=== PATIENT | female | born 1990 | race Caucasian/White ===

== ENCOUNTER 2016-08-04 21:47 | Emergency (ER) | payer OTHER ==
[~2016-08-04] VITALS: Ht 154.9 cm; Wt 83.0 kg
[2016-08-04 22:41] LABS: UA SPECIFIC GRAVITY 1.025 (1.005-1.035); microscopic required? YES; urine erythrocyte 2+ (NEGATIVE)
[2016-08-04 22:41] LABS: BASOPHIL % 0.5 % (0-2); PLATELET COUNT 363 x10^3mcL (130-400); RED CELL DISTRIBUTION WIDTH 13.8 % (11.5-14.5)
[2016-08-04 22:50] LABS: CALCIUM 8.9 mg/dL (8.5-10.1); CARBON DIOXIDE 27.4 mmol/L (21-32); CHLORIDE SERUM 104 mmol/L (98-107); CREATININE SERUM 0.7 mg/dL (0.6-1.0); GFR1 > 60 mL/min; GLUCOSE SERUM 112 mg/dL (74-106); POTASSIUM SERUM 3.3 mmol/L (3.5-5.1); SODIUM SERUM 140 mmol/L (136-145)
[2016-08-04 22:55] LABS: ALBUMIN 4.1 g/dL (3.4-5.0); ALKALINE PHOSPHATASE 79 U/L (46-116); ALT/SGPT 43 U/L (14-59); AMYLASE 77 U/L (25-115); AST/SGOT 22 U/L (15-37); BILIRUBIN TOTAL 0.17 mg/dL (0.20-1.00); LIPASE 121 IU/L (73-393); TOTAL PROTEIN, SERUM 7.9 g/dL (6.4-8.2)
[2016-08-05 00:09] VITALS: BP 128/75
== END 2016-08-05 02:09 | disposition home or self-care (01) ==
LOC: ED 21:47
PROVIDERS: Emergency Medicine
DX: N39.0 Urinary tract infection, site not specified (principal)
CPT/HCPCS: 36415; Q0092

== ENCOUNTER 2017-03-13 18:25 | Emergency (ER) | payer MEDICAID ==
[~2017-03-13] VITALS: Ht 154.9 cm; Wt 84.8 kg
[2017-03-13 19:07] VITALS: Ht 154.9 cm; Wt 84.8 kg
[2017-03-13 20:43] VITALS: BP 119/79
== END 2017-03-13 20:43 | disposition home or self-care (01) ==
LOC: ED 18:25
DX: R51 Headache (principal); H60.91 Unspecified otitis externa, right ear
CPT/HCPCS: Q0162

== ENCOUNTER 2017-03-17 15:04 | Emergency (ER) | payer MEDICAID ==
[~2017-03-17] VITALS: Ht 154.9 cm; Wt 83.5 kg
[2017-03-17 15:32] VITALS: Ht 154.9 cm; Wt 83.5 kg
[2017-03-17 16:46] VITALS: BP 115/90
== END 2017-03-17 16:46 | disposition home or self-care (01) ==
LOC: ED 15:04
DX: J20.9 Acute bronchitis, unspecified (principal)
CPT/HCPCS: Q0092

== ENCOUNTER 2017-07-16 16:07 | Emergency (ER) | payer OTHER ==
[~2017-07-16] VITALS: Ht 154.9 cm; Wt 83.0 kg
[2017-07-16 16:09] VITALS: BP 123/81; Ht 154.9 cm; Wt 83.0 kg
== END 2017-07-16 17:22 | disposition home or self-care (01) ==
LOC: ED 16:07
DX: H66.005 Acute suppurative otitis media without spontaneous rupture of ear drum, recurrent, left ear (principal)
CPT/HCPCS: 82962

== ENCOUNTER 2017-08-24 15:50 | Emergency (ER) | payer OTHER ==
[~2017-08-24] VITALS: Ht 154.9 cm; Wt 85.3 kg
[2017-08-24 15:56] VITALS: Ht 154.9 cm; Wt 85.3 kg
[2017-08-24 17:36] VITALS: BP 116/69
== END 2017-08-24 17:37 | disposition home or self-care (01) ==
LOC: ED 15:50
DX: F41.9 Anxiety disorder, unspecified (principal); F32.9 Major depressive disorder, single episode, unspecified; R51 Headache
CPT/HCPCS: J1885

== ENCOUNTER 2017-09-18 20:01 | Emergency (ER) | payer OTHER ==
[~2017-09-18] VITALS: Ht 154.9 cm; Wt 88.9 kg
[2017-09-18 20:02] VITALS: Ht 154.9 cm; Wt 88.9 kg
[2017-09-19 00:09] VITALS: BP 122/71
== END 2017-09-19 00:10 | disposition home or self-care (01) ==
LOC: ED 20:01
DX: G44.209 Tension-type headache, unspecified, not intractable (principal); R11.2 Nausea with vomiting, unspecified
CPT/HCPCS: J0780; J1885

== ENCOUNTER 2017-10-16 08:55 | Emergency (ER) | payer OTHER ==
[~2017-10-16] VITALS: Ht 154.9 cm; Wt 88.7 kg
[2017-10-16 09:07] VITALS: Ht 154.9 cm; Wt 88.7 kg
[2017-10-16 11:10] VITALS: BP 130/94
== END 2017-10-16 11:10 | disposition home or self-care (01) ==
LOC: ED 08:55
DX: S91.202A Unspecified open wound of left great toe with damage to nail, initial encounter (principal); X58.XXXA Exposure to other specified factors, initial encounter; Y93.89 Activity, other specified; Y92.89 Other specified places as the place of occurrence of the external cause; Y99.8 Other external cause status

== ENCOUNTER 2018-09-14 21:12 | Emergency (ER) | payer OTHER ==
[~2018-09-14] VITALS: Ht 154.9 cm; Wt 86.2 kg
[2018-09-14 21:47] VITALS: Ht 154.9 cm; Wt 86.2 kg
[2018-09-15 01:28] VITALS: BP 125/76
== END 2018-09-15 01:28 | disposition home or self-care (01) ==
LOC: ED 21:12
DX: F41.9 Anxiety disorder, unspecified (principal); F32.9 Major depressive disorder, single episode, unspecified

== ENCOUNTER 2019-03-22 03:19 | Inpatient (IN) | payer OTHER ==
[~2019-03-22] VITALS: Ht 154.9 cm; Wt 85.4 kg
[2019-03-22 04:18] LABS: CHLORIDE SERUM 105 mmol/L (98-107); CREATININE SERUM 0.6 mg/dL (0.6-1.0); GFR1 > 60 mL/min; GLUCOSE SERUM 145 mg/dL (74-106); POTASSIUM SERUM 3.9 mmol/L (3.5-5.1); SODIUM SERUM 139 mmol/L (136-145)
[2019-03-22 04:23] LABS: ALKALINE PHOSPHATASE 80 U/L (46-116); ALT/SGPT 62 U/L (14-59); AST/SGOT 32 U/L (15-37); BILIRUBIN TOTAL 0.4 mg/dL (0.20-1.00); LIPASE 91 IU/L (73-393); TOTAL PROTEIN, SERUM 7.9 g/dL (6.4-8.2)
[2019-03-22 04:51] LABS: BASOPHIL % 0.1 % (0-2); PLATELET COUNT 359 x10^3mcL (130-400); RED CELL DISTRIBUTION WIDTH 14.1 % (11.5-14.5)
[2019-03-22 08:18] LABS: T3 TOTAL 1.16 ng/mL
[2019-03-22 08:39] LABS: MAGNESIUM 1.9 mg/dL (1.8-2.4); PHOSPHOROUS 3.2 mg/dL (2.5-4.9)
[2019-03-22 08:40] LABS: CHOLESTEROL/HDL RATIO 3.6
[2019-03-22 09:12] VITALS: BP 123/72
[2019-03-22 09:18] LABS: FREE THYROXINE INDEX 2.4 ug/dL (1.4-4.5); T4(THYROXINE) 7.6 ug/dL (4.7-13.3)
[2019-03-22 10:23] LABS: UA SPECIFIC GRAVITY 1.015 (1.005-1.035); microscopic required? YES; urine erythrocyte TRACE (NEGATIVE)
[2019-03-22 11:53] VITALS: BP 123/84
[2019-03-22 17:35] VITALS: BP 114/70
[2019-03-22 20:45] VITALS: BP 114/71
[2019-03-23 05:43] VITALS: BP 122/78
[2019-03-23 06:58] LABS: CALCIUM 8.3 mg/dL (8.5-10.1); CARBON DIOXIDE 23.7 mmol/L (21-32); CHLORIDE SERUM 104 mmol/L (98-107); CREATININE SERUM 0.7 mg/dL (0.6-1.0); GFR1 > 60 mL/min; GLUCOSE SERUM 153 mg/dL (74-106); POTASSIUM SERUM 3.8 mmol/L (3.5-5.1); SODIUM SERUM 138 mmol/L (136-145)
[2019-03-23 07:45] VITALS: BP 118/73
[2019-03-23 07:59] LABS: BASOPHIL % 0.3 % (0-2); PLATELET COUNT 366 x10^3mcL (130-400); RED CELL DISTRIBUTION WIDTH 14.2 % (11.5-14.5)
[2019-03-23 11:55] VITALS: BP 120/74
[2019-03-23 16:32] VITALS: BP 108/58
[2019-03-23 18:55] VITALS: Ht 154.9 cm; Wt 85.4 kg
[2019-03-23 21:22] VITALS: BP 103/60
[2019-03-24 06:06] VITALS: BP 97/55
[2019-03-24 06:50] LABS: BASOPHIL % 0.5 % (0-2); PLATELET COUNT 242 x10^3mcL (130-400); RED CELL DISTRIBUTION WIDTH 14.4 % (11.5-14.5)
[2019-03-24 07:15] LABS: CALCIUM 7.7 mg/dL (8.5-10.1); CARBON DIOXIDE 28.3 mmol/L (21-32); CHLORIDE SERUM 107 mmol/L (98-107); CREATININE SERUM 0.5 mg/dL (0.6-1.0); GFR1 > 60 mL/min; GLUCOSE SERUM 110 mg/dL (74-106); POTASSIUM SERUM 3.5 mmol/L (3.5-5.1); SODIUM SERUM 142 mmol/L (136-145)
[2019-03-24 07:19] VITALS: BP 106/71
[2019-03-24] MEDS ORDERED: MOT800 PO (11:01)
[2019-03-24 11:32] VITALS: BP 114/63
[2019-03-24 12:06] VITALS: BP 114/63
== END 2019-03-24 13:40 | disposition home or self-care (01) | DRG 234 ==
LOC: ED 03:19 → MU 07:21
PROVIDERS: Family Medicine; Surgery; ADMIT Student in an Organized Health Care Education/Training Program
PROC: 0DTJ4ZZ Resection of Appendix, Percutaneous Endoscopic Approach (ICD-10-PCS; principal; 2019-03-22 10:00)
DX: K35.80 Unspecified acute appendicitis (principal); E66.9 Obesity, unspecified; F41.8 Other specified anxiety disorders; F41.9 Anxiety disorder, unspecified; F32.9 Major depressive disorder, single episode, unspecified; Z68.35 Body mass index [BMI] 35.0-35.9, adult
CPT/HCPCS: 84439; G0378; J0330; J0696; J1170; J1650; J1885; J2001; J2250; J2270; J2405; J2543; J2704; J2710; J3010; J3490; J7030